=== PATIENT | female | born 1960 | race Caucasian/White ===

== ENCOUNTER 2022-03-07 11:26 | Emergency (ER) | payer BC ==
[2022-03-07 12:57] LABS: ALT (SGPT) 28 U/L (8-55); AST (SGOT) 20 U/L (5-34); Albumin 4.5 g/dL (3.4-4.8); Alkaline Phosphatase 81 U/L (40-110); Anion Gap 14 mmol/L (10-20); BUN (Urea Nitrogen) 20 mg/dL (9.8-20.1); Bilirubin, Total 0.5 mg/dL (0.2-1.2); Calc. Creatinine Clearance 0 mL/min (70-130); Carbon Dioxide 27 mmol/L (23-31); Chloride 104 mmol/L (98-107); Estimated GFR 92; Globulin 3.2 g/dL (2.4-3.5); Glucose 95 mg/dL (80-115); Potassium 4.9 mmol/L (3.5-5.1); Protein, Total 7.7 g/dL (5.8-8.1); Sodium 140 mmol/L (136-145)
[2022-03-07] MEDS ORDERED: methylPREDNISolone Sod Succ/PF 125 MG/2 ML VIAL ONE (13:31)
[2022-03-07] MEDS ORDERED: diphenhydrAMINE 50 MG/ML VIAL ONE (13:31)
[2022-03-07] MEDS ORDERED: Famotidine/PF 20 mg/2ml Vial ONE (13:31)
[2022-03-07] MEDS ORDERED: methylPREDNISolone Sod Succ 40 MG VIAL ONE (13:37)
[2022-03-07] MEDS ORDERED: Iopamidol 370 76% 100 ML VIAL ONE (14:37)
[2022-03-07 15:05] LABS: #Basophils 0.1 10x3/uL (0.0-0.2); #Eosinphils 0.6 10x3/uL (0.0-0.5); #Monocytes 0.5 10x3/uL (0.0-1.1); #Neutrophils 3.5 10x3/uL (1.5-8.4); %Basophils 1.2 % (0.0-2.0); %Eosinophils 8.1 % (0.0-6.0); %Lymphocytes 32.5 % (18.0-47.0); %Monocytes 7.5 % (0.0-10.0); %Neutrophils 50.4 % (40.0-75.0); Hemoglobin 14.6 g/dL (12.0-15.5); Mean Corpuscular HGB CONC 33.3 g/dL (32.0-36.0); Mean Corpuscular Hemoglobin 28.9 pg (27.0-33.0); Mean Corpuscular Volume 86.7 fl (81.6-98.3); Mean Platelet Volume 9.5 fl (7.4-10.4); Platelet Count 287 10x3/uL (150-450); RBC Distribution Width 13.1 % (11.5-14.5); Red Blood Cell (RBC) Count 5.05 10x6/uL (3.90-5.03); White Blood Cell (WBC) Count 6.9 10x3/uL (3.5-10.5)
== END 2022-03-07 16:13 | disposition home or self-care (01) ==
LOC: CSHERS 11:26
DX: U07.1 COVID-19 (principal); I10 Essential (primary) hypertension
CPT/HCPCS: 36415; 71275; 80053; 82550; 83605; 84484; 85025; 93005; 96374; 96375; J1200; J2920; J2930; Q9967; S0028

== ENCOUNTER 2024-04-18 15:43 | Outpatient (CLI) | payer MEDICARE | END 2024-04-18 15:44 | disposition home or self-care (01) | LOC: CSHULT 15:43 | PROVIDERS: ATTEND Family Medicine | DX: E03.9 Hypothyroidism, unspecified (principal); E04.2 Nontoxic multinodular goiter | CPT/HCPCS: 76536 ==

== ENCOUNTER 2025-02-17 14:26 | Outpatient (CLI) | payer MEDICARE | END 2025-02-17 14:27 | disposition home or self-care (01) | LOC: CSHMAMMO 14:26 | PROVIDERS: ATTEND Family Medicine | DX: Z12.31 Encounter for screening mammogram for malignant neoplasm of breast (principal) | CPT/HCPCS: 77063; 77067 ==

== ENCOUNTER 2025-03-09 13:20 | Outpatient (CLI) | payer MEDICARE | END 2025-03-09 13:21 | disposition home or self-care (01) | LOC: CSHCT 13:20 | PROVIDERS: ATTEND Family Medicine | DX: R10.9 Unspecified abdominal pain (principal); N20.0 Calculus of kidney; N28.1 Cyst of kidney, acquired | CPT/HCPCS: 74176 ==